=== PATIENT | female | born 1965 | race Caucasian/White ===

== ENCOUNTER 2018-05-31 16:19 | Emergency (ER) | payer OTHER ==
[2018-05-31] MEDS: SOD CHLORIDE 0.9% 1,000 ML IV (17:24)
[2018-05-31] MEDS: METOCLOPRAMIDE 10 MG INJ IV (17:31)
[2018-05-31] MEDS: DIPHENHYDRAMINE 50 MG INJ IV (17:31)
[2018-05-31] MEDS: KETOROLAC 30 MG INJ IV (17:32)
[2018-05-31 18:01] LABS: ADD MAN DIFF? NO
[2018-05-31 18:08] LABS: BASOPHILS % 0.2 % (0.0-2.0); EOSINOPHILS # 0.1 10^3/ul (0.0-0.5); EOSINOPHILS % 0.9 % (0.0-7.0); HEMATOCRIT 38.7 % (37.0-47.0); LYMPHOCYTES # 1.8 10^3/ul (0.8-2.9); LYMPHOCYTES % 32.4 % (15.0-51.0); MEAN CORPUSCULAR HEMOGLOBIN 31.8 pg (29.0-33.0); MEAN CORPUSCULAR HGB CONC 33.6 g/dl (32.0-37.0); MEAN CORPUSCULAR VOLUME 94.6 fl (82.0-101.0); MEAN PLATELET VOLUME 11.8 fl (7.4-10.4); MONOCYTE # 0.4 10^3/ul (0.3-0.9); MONOCYTES % 7.7 % (0.0-11.0); NEUTROPHIL # 3.3 10^3/ul (1.6-7.5); NEUTROPHILS % 58.6 % (39.0-77.0); PLATELET COUNT 180 10^3/UL (140-415); RED BLOOD COUNT 4.09 10^6/ul (4.20-5.40); RED CELL DISTRIBUTION WIDTH 12.3 % (11.5-14.5)
[2018-05-31 18:08] LABS: WHITE BLOOD COUNT 5.6 10^3/ul (4.8-10.8)
[2018-05-31 18:23] LABS: INR 0.93; PROTIME 12.5 Sec (11.9-14.9)
[2018-05-31 18:25] LABS: ANION GAP 11 (8-16); BLOOD UREA NITROGEN 14 mg/dl (7-20); CARBON DIOXIDE 30 mmol/L (21-31); CHLORIDE 105 mmol/L (97-110); CREATININE 0.69 mg/dl (0.44-1.00); GLUCOSE 101 mg/dl (70-220); POTASSIUM 3.9 mmol/L (3.5-5.1); SODIUM 142 mmol/L (135-144)
== END 2018-05-31 19:22 | disposition home or self-care (01) ==
LOC: FTE 16:19
DX: R51 Headache (principal)
CPT/HCPCS: 36415; 80048; 85025; 85610; 85730; 96374; 96375; 99284-25

== ENCOUNTER 2018-06-08 09:13 | Day surgery (SDC) | payer OTHER ==
[2018-06-08] MEDS ORDERED: MIDAZOLAM 1 MG/ML 2 ML INJ ×2 (12:25)
[2018-06-08] MEDS ORDERED: FENTAnyl 50 MCG/ML VIAL (12:25)
== END 2018-06-08 14:54 | disposition home or self-care (01) ==
LOC: GIL 09:13
DX: Z12.11 Encounter for screening for malignant neoplasm of colon (principal); K29.50 Unspecified chronic gastritis without bleeding
CPT/HCPCS: 43239; 88305; 88312